=== PATIENT | female | born 1990 | race Caucasian/White ===

== ENCOUNTER 2020-05-25 09:50 | Inpatient (IN) ==
[2020-05-25] MEDS ORDERED: *HR* FentaNYL (PF) 100 MCG/2 ML VIAL IVP PRN (17:48)
[2020-05-25] MEDS ORDERED: Azithromycin 500 MG in 0.9 % Sodium Chloride 250 ML IVPB ONE (17:48)
[2020-05-25] MEDS ORDERED: Ondansetron 4 MG/2 ML VIAL IVP PRN ×2 (17:48→17:57)
[2020-05-25] MEDS ORDERED: Famotidine 20 MG/2 ML VIAL IVP PRN ×2 (17:48→17:57)
[2020-05-25] MEDS ORDERED: Naloxone 0.4 MG/ML INJ IVP PRN ×2 (17:48→17:57)
[2020-05-25] MEDS ORDERED: Metoclopramide 10 MG/2 ML VIAL IVP PRN ×2 (17:48→17:57)
[2020-05-25] MEDS ORDERED: Lidocaine 1% 20 ML MDV ID PRN (17:48)
[2020-05-25] MEDS ORDERED: Penicillin G Potassium 5,000,000 UNIT in 0.9 % Sodium Chloride Mini Bag 100 ML IVPB ONE ×3 (17:52→18:30)
[2020-05-25] MEDS ORDERED: Ringers Solution, Lactated 1,000 ML IVC SCH (18:00)
[2020-05-25 18:46] LABS: Basophils % 0.3 %; Eosinophils # 0.2 K/mcL (0.0-0.6); Eosinophils % 1.4 %; Hematocrit 35.2 % (35.3-44.9); Hemoglobin 11.3 g/dL (11.5-15.4); Immature Granulocytes % 2.7 % (0-4); Lymphocytes # 1.6 K/mcL (0.6-4.6); Lymphocytes % 15.5 %; Mean Corpuscular HGB Conc 32.1 g/dL (31.6-35.5); Mean Corpuscular Hemoglobin 30.4 pg (28.0-33.3); Mean Corpuscular Volume 94.6 fL (83.0-100.0); Mean Platelet Volume 11.8 fL (9.4-12.4); Monocytes % 9.8 %; Neutrophils # 7.3 K/mcL (1.6-8.9); Platelet Count 201 K/mcL (140-400); Red Blood Count 3.72 M/mcL (3.82-4.97); Red Cell Distribution Width 13.4 % (11.5-14.5); Segmented Neutrophils % 70.3 %; White Blood Count 10.4 K/mcL (4.3-11.1)
[2020-05-25] MEDS: Ringers Solution, Lactated 1,000 ML IVC SCH ×2 (18:51→22:59)
[2020-05-25 19:05] LABS: Amphetamine Screen,Urine Negative ng/mL (Cutoff=1000); Barbiturate Screen,Urine Negative ng/mL (Cutoff=200); Benzodiazepines Screen,Urine Negative ng/mL (Cutoff=200); Cannabinoid Screen,Urine Negative ng/mL (Cutoff = 50); Cocaine Screen,Urine Negative ng/mL (Cutoff= 300); Opiate Screen,Urine Negative ng/mL (Cutoff=300); Phencyclidine Screen,Urine Negative ng/mL (Cutoff=25)
[2020-05-25] MEDS ORDERED: Penicillin G Potassium 2,500,000 UNIT in 0.9 % Sodium Chloride 100 ML IVPB SCH (20:00)
[2020-05-25] MEDS ORDERED: EPHEDrine 50 MG/ML VIAL IVP PRN (21:07)
[2020-05-25] MEDS ORDERED: Epidural Premix (fent/bupiv) 110 ML EP SCH (21:15)
[2020-05-25] MEDS ORDERED: Oxytocin 20 units/ LR 1000 mL 20 UNIT/1,000 ML BAG IVC SCH (22:45)
[2020-05-25] MEDS ORDERED: Oxytocin 20 units/ LR 1000 mL 20 UNIT/1,000 ML BAG IVC ONE (22:50)
[2020-05-25] MEDS: Penicillin G Potassium 2,500,000 UNIT/105 ML MLS IVPB SCH (23:10)
[2020-05-26] MEDS: Penicillin G Potassium 2,500,000 UNIT/105 ML MLS IVPB SCH ×4 (03:22→15:56)
[2020-05-26] MEDS ORDERED: Ropivacaine/PF 0.2% 20 ML VIAL ONE (06:40)
[2020-05-26] MEDS ORDERED: *HR* FentaNYL (PF) 100 MCG/2 ML VIAL ONE (06:40)
[2020-05-26] MEDS: Ringers Solution, Lactated 1,000 ML IVC SCH (07:51)
[2020-05-26] MEDS ORDERED: D5% in Lactated Ringers 1,000 ML IVC SCH (09:45)
[2020-05-26] MEDS ORDERED: Measles/Mumps/Rubella Vacc 0.5 ML VIAL SQ PRN (19:08)
[2020-05-26] MEDS ORDERED: Rho Immune Globulin 1,500 UNIT SYRINGE IM PRN (19:08)
[2020-05-26] MEDS ORDERED: Oxytocin 20 units/ LR 1000 mL 20 UNIT/1,000 ML BAG IVC SCH (19:08)
[2020-05-26] MEDS: Ibuprofen 600 MG TABLET PO SCH (19:33)
[2020-05-27] MEDS ORDERED: Ibuprofen 600 MG TABLET PO SCH
[2020-05-27] MEDS: Ibuprofen 600 MG TABLET PO SCH ×3 (02:41→15:22)
[2020-05-27 08:24] VITALS: BP 113/71
[2020-05-27] MEDS: Acetaminophen 325 MG TABLET PO SCH ×2 (08:43→15:22)
[2020-05-27] MEDS ORDERED: Prenatal Vit/FA 1 EACH TABLET PO SCH (09:00)
[2020-05-27] MEDS ORDERED: Benzocaine/Menthol 56 GM AEROSOL SPRAY TP PRN (11:46)
== END 2020-05-27 21:19 | disposition home or self-care (01) | DRG 806 ==
LOC: 1NENULAB → 1NENUOBS 05-26 20:15
PROVIDERS: ADMIT Student in an Organized Health Care Education/Training Program; ATTEND Student in an Organized Health Care Education/Training Program